=== PATIENT | female | born 1940 | race Caucasian/White ===

== ENCOUNTER 2017-01-25 13:57 | Day surgery (SDC) | payer MEDICARE, OTHER ==
[~2017-01-25] VITALS: Ht 162.6 cm; Wt 83.0 kg
[~2017-01-25 13:57] MED LIST: ACET-2404 PO; ASPI-628 PO; CALC-721 PO; CHOL200020 PO; CYAN1TAB42 PO; HYDR-4150 PO; LEVO75TA4 PO; Lactated Ringer's 1,000 ML IV ONE; OMPR20CCR PO; PRV40T PO; PSYL0.5211 PO; TRIA1CAP PO
[2017-01-25] MEDS ORDERED: Propofol 10 mg/mL 20 mL Inj ONE (13:58)
[2017-01-25] MEDS ORDERED: OMEP20TA86 PO (14:18)
[2017-01-25] MEDS ORDERED: CALC-786 PO (14:18)
[2017-01-25] MEDS ORDERED: CHOL200047 PO (14:18)
[2017-01-25] MEDS ORDERED: ASPI-973 PO (14:18)
[2017-01-25 14:19] VITALS: BP 136/79; PULSE 76; RESP 16; O2SAT 96
[2017-01-25 15:25] VITALS: BP 114/69; PULSE 69; RESP 17; O2SAT 99
[2017-01-25 15:35] VITALS: BP 121/78; PULSE 68; RESP 16; O2SAT 100
--- NOTE | 2017-01-25 15:48 | ENDO ---
[address] [address] ENDOSCOPY PROCEDURE PATIENT: DEVAUGHN ORONA : 1940 MR#: [id number] ADMIT: 01/25/2017 JOB ID: [id number] DATE: 01/25/2017 PROCEDURE: Esophagogastroduodenoscopy (EGD). INDICATION: Gastroesophageal reflux. ANESTHESIA: The patient's ASA classification, Mallampati score, and medications as per anesthesia report. INSTRUMENT USED: GIF H 180 J. PROCEDURE DETAILS: After informed consent was obtained, the patient was brought into the GI suite, where she was placed on oxygen via nasal cannula and monitored with continuous pulse oximeter, telemetry, and blood pressure monitoring. A time-out was performed, then she was placed in the left lateral decubitus position and medications were administered for sedation. A bite block was placed. The standard EGD scope was inserted through the bite block and advanced under direct visualization to the second portion of the duodenum without difficulty. FINDINGS: 1. Normal appearing duodenal bulb, first and second portion. 2. Normal-appearing pylorus, antrum, and gastric body. 3. In the proximal part of the stomach, just below the GE junction, there was an approximately 3-4 mm nodule that was removed with cold biopsy forceps. 4. The GE junction was at approximately 40 cm. It was slightly irregular. There was a short tongue of salmon-colored mucosa which was biopsied. This tongue was less than a cm in length. The remainder of the esophagus otherwise appeared unremarkable. IMPRESSION: 1. Gastric nodule just below the gastroesophageal junction. 2. Slightly irregular gastroesophageal junction. RECOMMENDATIONS: 1. Continue PPI daily. 2. Await biopsy results. 3. Follow up in GI Clinic in 2-4 weeks. COMPLICATIONS: None. ESTIMATED BLOOD LOSS: Less than 5 mL.
--- NOTE | 2017-01-29 14:11 | PATH ---
SURGICAL PATHOLOGY Attending Physician:Rick Acosta CASE STATUS: Signed Out PATIENT NAME: DEVAUGHN ORONA PID: [id number] : 1940 DATE COLLECTED:01/25/2017 00:00 SPECIMEN: 1: Stomach, Polyp, Biopsy 2: Esophagus, Biopsy CLINICAL HISTORY: 1). PROXIMAL GASTRIC BODY POLYP 2). DISTAL ESOPHAGUS BIOPSY FINAL DIAGNOSIS: 1.STOMACH POLYP: HYPERPLASTIC POLYP. Negative for intestinal metaplasia. No evidence of dysplasia or malignancy. 2.DISTAL ESOPHAGUS BIOPSY: GASTRIC GLANDULAR MUCOSA AND ESOPHAGEAL SQUAMOUS EPITHELIUM WITH MILD CHRONIC ACTIVE INFLAMMATION. Negative for intestinal metaplasia. No evidence of dysplasia or malignancy. ICD10 D13.1 GROSS DESCRIPTION: The specimens are received in formalin, labeled with the patient's name and sublabeled as the following: (1) proximal gastric body polyp; (2) distal esophagus. (1) The specimen consists of multiple fragments of lemons, glistening, rubbery, semi-translucent tissue (1.1 x 0.3 x 0.2 cm in aggregate). Section code: (1A) tissue. Specimen entirely submitted. (1) The specimen consists of a fragment of lemons, glistening, semi-translucent tissue (0.4 x 0.2 x 0.1 cm). Section code: (2A) intact tissue. Specimen entirely submitted. ([id number]) MICRO DESCRIPTION: See diagnosis. ICD-9 CODES: CPT CODES: 1: 14511 2: 64861 Electronically Signed Out Thierry Hedrick MD [facility] Pathology [facility] [address], [place] [address] Technical component performed at [facility], [address], [place], [address]
== END 2017-01-25 23:59 | disposition home or self-care (01) ==
LOC: END 13:57
PROVIDERS: ATTEND Internal Medicine Gastroenterology
DX: K31.7 Polyp of stomach and duodenum (principal); K21.9 Gastro-esophageal reflux disease without esophagitis; I10 Essential (primary) hypertension; I47.1 Supraventricular tachycardia; I35.1 Nonrheumatic aortic (valve) insufficiency; E03.9 Hypothyroidism, unspecified; Z79.82 Long term (current) use of aspirin
CPT/HCPCS: 43239; 88305; J7120